=== PATIENT | female | born 1975 | race Caucasian/White ===

== ENCOUNTER 2017-09-19 10:48 | Outpatient (CLI) | payer OTHER ==
--- NOTE | 2017-09-20 08:42 | Mammography Report ---
BILATERAL MAMMOGRAM: FINDINGS: The breast tissue is heterogeneously dense, which could obscure detection of small masses (approximately 50%-75% glandular). No mass, distortion, suspicious calcification, or skin change is seen. CAD was utilized. IMPRESSION: Negative mammogram. There is no mammographic evidence of malignancy. RECOMMENDATION: Follow-up per ACS guidelines. BI-RADS CATEGORY: 1 = Negative ACR BI-RADS MAMMOGRAPHIC CODES: 0 = Needs additional imaging evaluation; 1 = Negative; 2 = Benign; 3 = Probably benign; 4 = Suspicious; 5 = Malignant; 6 = Known biopsy-proven malignancy COMMENT: 1. Dense breast tissue, i.e., adenosis, fibrocystic changes, etc., may obscure an underlying neoplasm. 2. Approximately 10% of cancers are not detected with mammography. 3. A negative mammography report should not delay biopsy if a clinically suspicious mass is present. COMMENT: Patient follow-up letters are generated in [employer].
== END 2017-09-19 10:49 | disposition home or self-care (01) ==
LOC: SPVWC 10:48
PROVIDERS: ATTEND Internal Medicine
DX: Z12.31 Encounter for screening mammogram for malignant neoplasm of breast (principal)
CPT/HCPCS: 77067

== ENCOUNTER 2019-05-27 10:21 | Emergency (ER) | payer OTHER ==
--- NOTE | 2019-05-27 16:04 | Emergency Department Report ---
ED Female HPI - General Chief complaint: Vaginal Bleeding Stated complaint: HEAVY BLEEDING/WEAK Source: patient Mode of arrival: Ambulatory Limitations: No Limitations - History of Present Illness Initial comments: 44-year-old female presents the ED with prolonged vaginal bleeding x 3 weeks. Patient reports associated lower abdominal cramping. Patient states she called her process specialist, but only appointment available was at 2pm today. Pt states she was told to come to the ER. DIGITAL SALES DIRECTOR: [facility] Complaint: vaginal bleeding -: week(s) (3) Severity: moderate Quality: cramping Consistency: intermittent Improves with: none Worsens with: none Are you Now?: No Associated Symptoms: denies other symptoms - Related Data Allergies Allergy/AdvReac Type Severity Reaction Status Date / Time Latex, Natural Rubber Allergy Hives Verified 05/27/19 16:25 ED Review of Systems ROS: Stated complaint: HEAVY BLEEDING/WEAK Other details as noted in HPI Comment: All other systems reviewed and negative Constitutional: denies: fever Gastrointestinal: abdominal pain Genitourinary: abnormal menses ED Past Medical Hx - Past Medical History Previous Medical History?: Yes Hx Hypertension: Yes Hx Diabetes: Yes Hx Asthma: Yes Additional medical history: "heart problem" - Surgical History Past Surgical History?: No - Social History Smoking Status: Unknown if ever smoked Substance Use Type: None ED Physical Exam - General Limitations: No Limitations General appearance: alert, in no apparent distress - Head Head exam: Present: atraumatic, normocephalic - Eye Eye exam: Present: normal appearance, EOMI - ENT ENT exam: Present: mucous membranes moist - Neck Neck exam: Present: normal inspection - Respiratory Respiratory exam: Present: normal lung sounds bilaterally. Absent: respiratory distress - Cardiovascular Cardiovascular Exam: Present: normal rhythm, tachycardia - GI/Abdominal GI/Abdominal exam: Present: soft. Absent: distended, tenderness - Extremities Exam Extremities exam: Present: normal inspection - Neurological Exam Neurological exam: Present: alert, oriented X3 - Psychiatric Psychiatric exam: Present: normal affect, normal mood - Skin Skin exam: Present: warm, dry, intact, normal color ED Course Vital Signs 05/27/19 05/27/19 05/27/19 10:31 14:16 14:30 Temperature 98.0 F Pulse Rate 107 H Respiratory 20 Rate Blood Pressure 140/89 125/77 110/71 O2 Sat by Pulse 100 99 100 Oximetry 05/27/19 05/27/19 05/27/19 15:00 15:30 16:00 Temperature Pulse Rate Respiratory Rate Blood Pressure 104/68 107/73 132/83 O2 Sat by Pulse 100 Oximetry 05/27/19 16:30 Temperature Pulse Rate Respiratory Rate Blood Pressure 109/74 O2 Sat by Pulse 100 Oximetry ED Medical Decision Making - Lab Data Result diagrams: 05/27/19 16:03 05/27/19 16:03 - Medical Decision Making - Hg 10.6 - preg test negative - vitals stable - advised to f/u w/ her private DIGITAL SALES DIRECTOR for further management - return precautions given - Differential Diagnosis DUB, ectopic preg, threatened AB Critical care attestation.: If time is entered above; I have spent that time in minutes in the direct care of this critically ill patient, excluding procedure time. ED Disposition Clinical Impression: DUB (dysfunctional uterine bleeding) Disposition: DC-01 TO HOME OR SELFCARE Is pt being admited?: No Condition: Undetermined Instructions: Dysfunctional Uterine Bleeding (ED) Referrals: PRIMARY CARE, [Primary Care Provider] - 2-3 Days Time of Disposition: 16:41
[2019-05-27 16:12] LABS: Basophils # (Auto) 0.1 K/mm3 (0.0-0.1); Basophils % (Auto) 0.8 % (0.0-1.8); Eosinophils # (Auto) 0.2 K/mm3 (0.0-0.4); Eosinophils % (Auto) 2.8 % (0.0-4.3); Hemoglobin 10.6 gm/dl (10.1-14.3); Lymphocytes # (Auto) 0.9 K/mm3 (1.2-5.4); Lymphocytes % (Auto) 12.8 % (13.4-35.0); Mean Corpuscular HGB Conc 33 % (30-34); Mean Corpuscular Volume 91 fl (79-97); Monocytes # (Auto) 0.4 K/mm3 (0.0-0.8); Monocytes % (Auto) 5.5 % (0.0-7.3); Platelet Count 371 K/mm3 (140-440); Red Cell Distribution Width 14.6 % (13.2-15.2)
[2019-05-27 16:26] LABS: BUN/Creatinine Ratio 22; Blood Urea Nitrogen 11 mg/dL (7-17); Calcium 8.7 mg/dL (8.4-10.2); Hemolysis Index 4
[2019-05-27 16:39] VITALS: BP 109/74
== END 2019-05-27 17:49 | disposition home or self-care (01) ==
LOC: ED 10:21
DX: N93.8 Other specified abnormal uterine and vaginal bleeding (principal); I10 Essential (primary) hypertension; E11.9 Type 2 diabetes mellitus without complications; J45.909 Unspecified asthma, uncomplicated; Z91.040 Latex allergy status; Z98.890 Other specified postprocedural states
CPT/HCPCS: 36415; 80048; 84703; 85025; 99283

== ENCOUNTER 2019-12-15 11:20 | Emergency (ER) | payer OTHER ==
[2019-12-15 11:39] VITALS: BP 118/82
[2019-12-15] MEDS ORDERED: IBUPROFEN 800 MG TAB PO ONE (13:40)
--- NOTE | 2019-12-15 13:47 | Emergency Department Report ---
ED Lower Extremity HPI - General Chief Complaint: Extremity Injury, Lower Stated Complaint: RT LEG PAIN Time Seen by Provider: 12/15/19 13:11 Source: patient Mode of arrival: Ambulatory Limitations: No Limitations - History of Present Illness Initial Comments: This is a 44-year-old female nontoxic, well nourished in appearance, no acute signs of distress presents to the ED with c/o of right leg pain 1 week. Stated pain starts at the calf and radiates to the medial thigh area. Patient denies any trauma or injuries. Patient denies any numbness, tingling, fever, chills, nausea, vomiting, chest pain, shortness of breath, headache, stiff neck. Sarita ent denies any joint swelling or joint redness. Patient denies decreased range of motion. Patient stated has decreased gait due to pain. Patient stated allergies to latex. MD Complaint: leg injury -: week(s) (1) Injury: Leg: Right Severity: mild Severity scale (0 -10): 8 Improves With: nothing Worsens With: weight bearing, palpation Associated Symptoms: able to partially bear weight. denies: snap/pop sensation, swelling, numbness, tingling, unable to bear weight - Related Data Previous Rx's Medication Instructions Recorded Last Taken Type Pantoprazole [Protonix] 40 mg PO QDAY #30 tablet 09/05/19 Unknown Rx Naproxen 500 mg PO Q12H PRN #12 tablet 12/15/19 Unknown Rx Allergies Allergy/AdvReac Type Severity Reaction Status Date / Time Latex, Natural Rubber Allergy Hives Verified 12/15/19 11:34 ED Review of Systems ROS: Stated complaint: RT LEG PAIN Other details as noted in HPI Constitutional: denies: chills, fever Eyes: denies: eye pain, eye discharge, vision change ENT: denies: ear pain, throat pain Respiratory: denies: cough, shortness of breath, wheezing Cardiovascular: denies: chest pain, palpitations Endocrine: no symptoms reported Gastrointestinal: denies: abdominal pain, nausea, diarrhea Genitourinary: denies: urgency, dysuria, discharge Musculoskeletal: denies: back pain, joint swelling, arthralgia Skin: denies: rash, lesions Neurological: denies: headache, weakness, paresthesias Psychiatric: denies: anxiety, depression Hematological/Lymphatic: denies: easy bleeding, easy bruising ED Past Medical Hx - Past Medical History Hx Hypertension: Yes Hx Diabetes: Yes Hx Asthma: Yes Additional medical history: "heart problem"/ HIGH CHOLESTROL - Social History Smoking Status: Never Smoker Substance Use Type: None - Medications Home Medications: Home Medications Medication Instructions Recorded Confirmed Last Taken Type Pantoprazole [Protonix] 40 mg PO QDAY #30 tablet 09/05/19 Unknown Rx Naproxen 500 mg PO Q12H PRN #12 tablet 12/15/19 Unknown Rx ED Physical Exam - General Limitations: No Limitations General appearance: alert, in no apparent distress - Head Head exam: Present: atraumatic, normocephalic - Eye Eye exam: Present: normal appearance - Neck Neck exam: Present: normal inspection, full ROM. Absent: tenderness, meningismus, lymphadenopathy - Respiratory Respiratory exam: Present: normal lung sounds bilaterally. Absent: respiratory distress, wheezes, rales, rhonchi, stridor, chest wall tenderness, accessory muscle use, decreased breath sounds, prolonged expiratory - Cardiovascular Cardiovascular Exam: Present: regular rate, normal rhythm, tachycardia, normal heart sounds. Absent: irregular rhythm, systolic murmur, diastolic murmur, rubs, gallop - Extremities Exam Extremities exam: Present: full ROM, tenderness, normal capillary refill, calf tenderness. Absent: joint swelling - Expanded Lower Extremity Exam Right Hip exam: Present: normal inspection, full ROM. Absent: tenderness, swelling Upper Leg exam: Present: normal inspection, full ROM. Absent: tenderness, swelling Knee exam: Present: normal inspection, full ROM. Absent: tenderness, swelling Lower Leg exam: Present: full ROM, tenderness, swelling (mild). Absent: abrasion, laceration, ecchymosis, deformity, crepidus, erythema, palpable cord, Elise's sign Ankle exam: Present: normal inspection, full ROM. Absent: tenderness, swelling Foot/Toe exam: Present: normal inspection, full ROM. Absent: tenderness, swelling Neuro vascular tendon exam: Present: no vascular compromise Gait: Positive: observed and limited by pain - Back Exam Back exam: Present: normal inspection, full ROM. Absent: tenderness, CVA tenderness (R), CVA tenderness (L), muscle spasm, paraspinal tenderness, vertebral tenderness, rash noted - Neurological Exam Neurological exam: Present: alert, oriented X3 - Psychiatric Psychiatric exam: Present: normal affect, normal mood - Skin Skin exam: Present: warm, dry, intact, normal color. Absent: rash ED Course Vital Signs 12/15/19 11:35 Temperature 98.4 F Pulse Rate 100 H Respiratory 18 Rate Blood Pressure 118/82 O2 Sat by Pulse 100 Oximetry - Reevaluation(s) Reevaluation #1: 12/15/19 13:47 Patient is speaking in full sentences with no signs of distress noted. ED Lower Extremity MDM - Lab Data Result diagrams: 12/15/19 14:21 12/15/19 14:21 Lab Results 12/15/19 12/15/19 Range/Units 14:21 14:21 WBC 8.2 (4.5-11.0) K/mm3 RBC 4.80 (3.65-5.03) M/mm3 Hgb 9.7 L (10.1-14.3) gm/dl Hct 32.1 (30.3-42.9) % MCV 67 L (79-97) fl MCH 20 L (28-32) pg MCHC 30 (30-34) % RDW 25.1 H (13.2-15.2) % Plt Count 457 H (140-440) K/mm3 Lymph % (Auto) 12.3 L (13.4-35.0) % Chase % (Auto) 7.9 H (0.0-7.3) % Eos % (Auto) 3.4 (0.0-4.3) % Baso % (Auto) 1.5 (0.0-1.8) % Lymph # (Auto) 1.0 L (1.2-5.4) K/mm3 Chase # (Auto) 0.6 (0.0-0.8) K/mm3 Eos # (Auto) 0.3 (0.0-0.4) K/mm3 Baso # (Auto) 0.1 (0.0-0.1) K/mm3 Seg Neutrophils % 74.9 H (40.0-70.0) % Seg Neutrophils # 6.1 (1.8-7.7) K/mm3 Sodium 138 (137-145) mmol/L Potassium 4.6 (3.6-5.0) mmol/L Chloride 102.1 (98-107) mmol/L Carbon Dioxide 22 (22-30) mmol/L Anion Gap 19 mmol/L BUN 9 (7-17) mg/dL Creatinine 0.4 L (0.6-1.2) mg/dL Estimated GFR > 60 ml/min BUN/Creatinine Ratio 23 % Glucose 82 (65-100) mg/dL Calcium 9.5 (8.4-10.2) mg/dL Magnesium 2.40 H (1.7-2.3) mg/dL Total Creatine Kinase 41 (30-135) units/L - Radiology Data Referring Physician: ESE NINO Patient Name: HARRIS VELÁSQUEZ Date of : 1975 Sex: Female Report Date: 2019-12-15 Report Status: Finalized [facility] [address] [place] [address] Vascular Lab Report Signed Patient: HARRIS VELÁSQUEZ MR#: [id number] : 1975 Acct:[id number] Age/Sex: 44 / F ADM Date: 12/15/19 Loc: ED Attending Dr: Ordering Physician: ESE NINO NP Date of Service: 12/15/19 Procedure(s): VL venous duplex LE RT Accession Number(s): [id number] cc: ESE GARCIA NP DUPLEX DOPPLER LOWER EXTREMITY VEINS, RIGHT INDICATION: Right leg pain. TECHNIQUE: Duplex doppler imaging was performed through the veins of the right lower extremity using venous compression and other maneuvers. COMPARISON: None FINDINGS: Common Femoral vein: Negative. Superficial Femoral vein: Negative. Popliteal vein: Negative. Calf veins: Negative. Additional findings: None. IMPRESSION: 1. No sonographic evidence for DVT in the right lower extremity. Signer Name: Bebe Hill MD Signed: 12/15/2019 2:57 PM Workstation Name: [id number] Transcribed By: EB Dictated By: Bebe Hill MD Electronically Authenticated By: Bebe Hill MD Signed Date/Time: 12/15/191456 DD/ 56 TD/TT: - Medical Decision Making 44-year-old female that presents with right leg strain. Patient is stable and was examined by me. Labs obtained. Ultrasound negative for DVT. Patient notified of the results with no questions noted by the patient. Patient did receive treatment in the ER which stated the symptoms is improving and subsidin g. Patient be discharged with naproxen. Patient was instructed to follow-up with a primary care doctor in 3-5 days or if symptoms worsen and continue return to emergency room as soon as possible. At time of discharge, the patient does not seem toxic or ill in appearance. No acute signs of distress noted. Patient agrees to discharge treatment plan of care. No further questions noted by the patient. Critical care attestation.: If time is entered above; I have spent that time in minutes in the direct care of this critically ill patient, excluding procedure time. ED Disposition Clinical Impression: Muscle strain of right lower leg Qualifiers: Encounter type: initial encounter Qualified Code(s): S86.911A - Strain of unspecified muscle(s) and tendon(s) at lower leg level, right leg, initial encounter Disposition: TO HOME OR SELFCARE Is pt being admited?: No Does the pt Need Aspirin: No Condition: Stable Instructions: Muscle Strain (ED) Additional Instructions: Follow-up with a primary care doctor in 3-5 days or if symptoms worsen and continue return to emergency room as soon as possible. Prescriptions: Naproxen 500 mg PO Q12H PRN #12 tablet PRN Reason: Pain , Severe (7-10) Referrals: PRIMARY CAREMD [Primary Care Provider] - 3-5 Days MAIA HARRIS MD [Staff Physician] - 3-5 Days Forms: Work/School Release Form(ED) Time of Disposition: 15:14
[2019-12-15 14:53] LABS: Basophils % (Auto) 1.5 % (0.0-1.8); Eosinophils % (Auto) 3.4 % (0.0-4.3); Hematocrit 32.1 % (30.3-42.9); Hemoglobin 9.7 gm/dl (10.1-14.3); Lymphocytes % (Auto) 12.3 % (13.4-35.0); Mean Corpuscular HGB Conc 30 % (30-34); Mean Corpuscular Volume 67 fl (79-97); Monocytes % (Auto) 7.9 % (0.0-7.3); Platelet Count 457 K/mm3 (140-440); Red Cell Distribution Width 25.1 % (13.2-15.2)
[2019-12-15 14:54] LABS: Basophils # (Auto) 0.1 K/mm3 (0.0-0.1); Eosinophils # (Auto) 0.3 K/mm3 (0.0-0.4); Monocytes # (Auto) 0.6 K/mm3 (0.0-0.8)
[2019-12-15 14:55] LABS: Blood Urea Nitrogen 9 mg/dL (7-17); Calcium 9.5 mg/dL (8.4-10.2); Hemolysis Index 6
[2019-12-15 14:58] LABS: BUN/Creatinine Ratio 23
--- NOTE | 2019-12-15 15:02 | Vascular Lab Report ---
DUPLEX DOPPLER LOWER EXTREMITY VEINS, RIGHT INDICATION: Right leg pain. TECHNIQUE: Duplex doppler imaging was performed through the veins of the right lower extremity using venous comp ression and other maneuvers. COMPARISON: None FINDINGS: Common Femoral vein: Negative. Superficial Femoral vein: Negative. Popliteal vein: Negative. Calf veins: Negative. Additional findings: None. IMPRESSION: 1. No sonographic evidence for DVT in the right lower extremity. Signer Name: Bebe Hill MD Signed: 12/15/2019 2:57 PM Workstation Name: [id number]
== END 2019-12-15 15:22 | disposition home or self-care (01) ==
LOC: ED 11:20
DX: S86.911A Strain of unspecified muscle(s) and tendon(s) at lower leg level, right leg, initial encounter (principal); I10 Essential (primary) hypertension; E11.9 Type 2 diabetes mellitus without complications; M19.91 Primary osteoarthritis, unspecified site; Z79.899 Other long term (current) drug therapy; Z88.8 Allergy status to other drugs, medicaments and biological substances; Z91.040 Latex allergy status; X58.XXXA Exposure to other specified factors, initial encounter; Y93.89 Activity, other specified; Y92.89 Other specified places as the place of occurrence of the external cause; Y99.8 Other external cause status
CPT/HCPCS: 36415; 80048; 82550; 83735; 85025

== ENCOUNTER 2021-11-19 15:58 | Emergency (ER) | payer OTHER ==
[2021-11-19 16:26] VITALS: BP 152/92
[2021-11-19] MEDS ORDERED: dexAMETHasone 20 MG/5 ML VIAL IM ONE (20:32)
[2021-11-19] MEDS ORDERED: KETOROLAC 30 MG/1 ML INJ IM ONE (20:32)
--- NOTE | 2021-11-19 20:45 | Emergency Department Report ---
ED Back Pain/Injury HPI - General Chief Complaint: Back Pain/Injury Stated Complaint: LOWER BACK PAIN SHOOTING DOWN LEFT LEG Time Seen by Provider: 11/19/21 20:32 Source: patient Limitations: No Limitations - History of Present Illness Initial Comments: Patient 46-year-old female history of sciatica who presents for low back pain radiating to the left lower extremity x3 days. Pain described at 5/10 achy sharp exacerbated by bending reaching and twisting. No numbness or tingling no paralysis. There is been no new fall injury or trauma. She has followed by orthopedic surgery. There is been no loss or decrease in bowel or bladder function. Patient drove self to ED patient is amatory Tory to baseline with cane. Current medication regimen includes ibuprofen and gabapentin MD Complaint: back pain - Related Data Previous Rx's Medication Instructions Recorded Last Taken Type Pantoprazole [Protonix] 40 mg PO QDAY #30 tablet 09/05/19 Unknown Rx Naproxen 500 mg PO Q12H PRN #12 tablet 12/15/19 Unknown Rx Menthol/Camphor [[place] 1 applicatio TP QID PRN #1 tube 11/19/21 Unknown Rx Ointment] methylPREDNISolone [Medrol 4MG 4 mg PO DAILY #1 pack 11/19/21 Unknown Rx DOSEPAK (21 tabs)] Allergies Allergy/AdvReac Type Severity Reaction Status Date / Time Latex, Natural Rubber Allergy Hives Verified 11/19/21 16:26 ED Review of Systems ROS: Stated complaint: LOWER BACK PAIN SHOOTING DOWN LEFT LEG Other details as noted in HPI Constitutional: denies: chills, fever Eyes: denies: eye pain, eye discharge, vision change ENT: denies: ear pain, throat pain Respiratory: denies: cough, shortness of breath, wheezing Cardiovascular: denies: chest pain, palpitations Endocrine: no symptoms reported Gastrointestinal: denies: abdominal pain, nausea, diarrhea Genitourinary: denies: urgency, dysuria, discharge Musculoskeletal: back pain, myalgia Skin: denies: rash, lesions Neurological: denies: headache, weakness, numbness, paresthesias, confusion, vertigo Psychiatric: denies: anxiety, depression Hematological/Lymphatic: denies: easy bleeding, easy bruising ED Past Medical Hx - Past Medical History Hx Hypertension: Yes Hx Diabetes: Yes Hx Asthma: Yes Additional medical history: "heart problem"/ HIGH CHOLESTROL - Social History Smoking Status: Never Smoker Substance Use Type: None - Medications Home Medications: Home Medications Medication Instructions Recorded Confirmed Last Taken Type Pantoprazole [Protonix] 40 mg PO QDAY #30 tablet 09/05/19 Unknown Rx Naproxen 500 mg PO Q12H PRN #12 tablet 12/15/19 Unknown Rx Menthol/Camphor [[place] 1 applicatio TP QID PRN #1 tube 11/19/21 Unknown Rx Ointment] methylPREDNISolone [Medrol 4MG 4 mg PO DAILY #1 pack 11/19/21 Unknown Rx DOSEPAK (21 tabs)] ED Physical Exam - General Limitations: No Limitations General appearance: alert, in no apparent distress - Head Head exam: Present: normocephalic, normal inspection - Eye Eye exam: Present: EOMI Pupils: Present: normal accommodation - ENT ENT exam: Present: mucous membranes moist - Neck Neck exam: Present: normal inspection, full ROM. Absent: tenderness - Respiratory Respiratory exam: Present: normal lung sounds bilaterally. Absent: respiratory distress, wheezes - Cardiovascular Cardiovascular Exam: Present: regular rate, normal rhythm, normal heart sounds - GI/Abdominal GI/Abdominal exam: Present: soft, normal bowel sounds - Rectal Rectal exam: Present: deferred - Extremities Exam Extremities exam: Present: normal inspection, full ROM, normal capillary refill. Absent: pedal edema - Back Exam Back exam: Present: paraspinal tenderness. Absent: tenderness, muscle spasm, vertebral tenderness - Expanded Back Exam Expanded Back exam: Absent: saddle anesthesia Back exam: Positive Straight Leg Raise: Left, Negative Straight Leg Raising: Right - Neurological Exam Neurological exam: Present: alert, oriented X3, CN II-XII intact, normal gait, reflexes normal. Absent: motor sensory deficit - Expanded Neurological Exam Expanded Patient oriented to: Present: person, place, time Speech: Present: fluid speech Cranial nerves: EOM's Intact: Normal Motor strength exam: RUE: 5, LUE: 5, RLE: 5, LLE: 5 DTR: knee (R): 1+, knee (L): 1+ Best Eye Response ([place]): (4) open spontaneously Best Motor Response ([place]): (6) obeys commands Best Verbal Response ([place]): (5) oriented [place] Total: 15 - Psychiatric Psychiatric exam: Present: normal affect, normal mood - Skin Skin exam: Present: warm, dry, intact, normal color. Absent: rash ED Course Vital Signs 11/19/21 16:23 Temperature 98.9 F Pulse Rate 86 Respiratory 16 Rate Blood Pressure 152/92 [Right] O2 Sat by Pulse 100 Oximetry ED Medical Decision Making - Medical Decision Making This is acute on chronic low back pain. Pain improved medications given in ED. Plan DC to home with prescription. Follow-up with orthopedic surgery as scheduled. Turn to emergency department should symptoms worsen. Patient verbalized agreement understanding with discharge plan. Patient DC'd home in stable condition at this time. Critical care attestation.: If time is entered above; I have spent that time in minutes in the direct care of this critically ill patient, excluding procedure time. ED Disposition Clinical Impression: Low back strain Qualifiers: Encounter type: initial encounter Qualified Code(s): S39.012A - Strain of muscle, fascia and tendon of lower back, initial encounter Disposition: HOME / SELF CARE / HOMELESS Is pt being admited?: No Does the pt Need Aspirin: No Condition: Stable Instructions: Low Back Sprain or Strain Rehab-SportsMed Additional Instructions: Take medications as prescribed, moist heat therapy as directed. Low back exer cises as directed. Follow-up with orthopedic surgery as scheduled. Return to emergency department should symptoms worsen. Prescriptions: methylPREDNISolone [Medrol 4MG DOSEPAK (21 tabs)] 4 mg PO DAILY #1 pack Menthol/Camphor [[place] Ointment] 1 applicatio TP QID PRN #1 tube PRN Reason: pain Referrals: SLIM DORAN MD [Staff Physician] - 3-5 Days Forms: Work/School Release Form(ED) Time of Disposition: 20:47
== END 2021-11-19 21:15 | disposition home or self-care (01) ==
LOC: ED 15:58
DX: S39.012A Strain of muscle, fascia and tendon of lower back, initial encounter (principal); I10 Essential (primary) hypertension; E11.9 Type 2 diabetes mellitus without complications; J45.909 Unspecified asthma, uncomplicated; Z91.040 Latex allergy status; Z79.899 Other long term (current) drug therapy; X50.1XXA Overexertion from prolonged static or awkward postures, initial encounter; Y93.89 Activity, other specified; Y92.89 Other specified places as the place of occurrence of the external cause; Y99.8 Other external cause status
CPT/HCPCS: 96372; 99282; J1100; J1885